=== PATIENT | male | born 1965 | race Caucasian/White ===

== ENCOUNTER 2020-05-27 13:09 | Emergency (ER) | payer OTHER ==
--- NOTE | 2020-05-27 13:52 | CR ---
Indication: Cough. Loss of taste and smell. Possible COVID. Technique: AP portable view of the chest. Comparison: None Findings: The heart is normal size. The lungs are clear. No infiltrate, pleural effusion, or pneumothorax is identified. Impression: No acute cardiopulmonary process Dictated by Ni Patterson MD @ May 27 2020 1:51PM Signed by Dr. Ni Patterson @ May 27 2020 1:52PM
--- NOTE | 2020-05-27 14:34 | EDM.PDOC ---
ED HPI GENERAL MEDICAL PROBLEM - General Chief Complaint: Respiratory Problem Stated Complaint: LOST OF TASTE WEAK FEVER Time Seen by Provider: 05/27/20 14:11 Source of Information: Reports: Patient History Limitations: Reports: No Limitations - History of Present Illness INITIAL COMMENTS - FREE TEXT/NARRATIVE: Presents reporting an exposure to Covid week. Now the last couple of days he has had a low-grade fever, chills, and his sense of taste is managed. He has had no shortness of breath diarrhea chest pain sore throat. He is otherwise healthy without chronic medical problems except hypothyroidism which is replaced. - Related Data Allergies Allergy/AdvReac Type Severity Reaction Status Date / Time No Known Allergies Allergy Verified 05/27/20 14:16 Home Meds: Home Meds Levothyroxine 150 mcg PO DAILY 05/27/20 [History] Past Medical History - Infectious Disease History Infectious Disease History: Reports: Chicken Pox Social & Family History - Family History Family Medical History: Noncontributory - Caffeine Use Caffeine Use: Reports: Tea - Recreational Drug Use Recreational Drug Use: No ED ROS GENERAL - Review of Systems Review Of Systems: Comprehensive ROS is negative, except as noted in HPI. ED EXAM, GENERAL - Physical Exam Exam: See Below Exam Limited By: No Limitations General Appearance: Alert, No Apparent Distress Ears: Normal External Exam, Normal TMs Nose: Normal Inspection Throat/Mouth: Normal Inspection Head: Atraumatic, Normocephalic Neck: Normal Inspection Respiratory/Chest: No Respiratory Distress, Lungs Clear, Normal Breath Sounds Cardiovascular: Normal Peripheral Pulses, Regular Rate, Rhythm, No Murmur Back Exam: Normal Inspection Extremities: Normal Inspection Neurological: Alert, Oriented Psychiatric: Normal Affect, Normal Mood Skin Exam: Warm, Dry, Intact, Normal Color, No Rash Lymphatic: No Adenopathy Course - Vital Signs Last Recorded V/S: Last Vital Signs Temp 36.6 C 05/27/20 14:17 Pulse 56 L 05/27/20 14:17 Resp 18 05/27/20 14:17 BP 164/74 H 05/27/20 14:17 Pulse Ox 96 05/27/20 14:17 - Orders/Labs/Meds Orders: Active Orders 24 hr Category Date Time Status CORONAVIRUS COVID-19 PCR [facility] Stat Lab 05/27/20 13:11 Ordered Departure - Departure Time of Disposition: 14:27 Disposition: Home, Self-Care 01 Condition: Good Clinical Impression: Viral illness - Discharge Information *PRESCRIPTION DRUG MONITORING PROGRAM REVIEWED*: Not Applicable *COPY OF PRESCRIPTION DRUG MONITORING REPORT IN PATIENT TREVER: Not Applicable Referrals: PCP,None [Primary Care Provider] - Additional Instructions: The following information is given to patients seen in the emergency department who are being discharged to home. This information is to outline your options for follow-up care. We provide all patients seen in our emergency department with a follow-up referral. The need for follow-up, as well as the timing and circumstances, are variable depending upon the specifics of your emergency department visit. If you don't have a primary care physician on staff, we will provide you with a referral. We always advise you to contact your personal physician following an emergency department visit to inform them of the circumstance of the visit and for follow-up with them and/or the need for any referrals to a consulting specialist. The emergency department will also refer you to a specialist when appropriate. This referral assures that you have the opportunity for follow-up care with a specialist. All of these measure are taken in an effort to provide you with optimal care, which includes your follow-up. Under all circumstances we always encourage you to contact your private physician who remains a resource for coordinating your care. When calling for follow-up care, please make the office aware that this follow-up is from your recent emergency room visit. If for any reason you are refused follow-up, please contact the [facility] Emergency Department at and asked to speak to the emergency department charge nurse Jose Miller [facility] [address] [place] [id number] [address] [id number] 1. You have a viral illness. Supportive care with Tylenol or ibuprofen as needed for body aches or fever 2. Drink Plenty of fluids and rest 3. Your COVID test was negative. Should you need Covid testing in the future, please follow-up at the respiratory clinic. Sepsis Event Note (ED) - Evaluation Sepsis Screening Result: No Definite Risk - Focused Exam Vital Signs: Vital Signs Temp Pulse Resp BP Pulse Ox 05/27/20 14:17 36.6 C 56 L 18 164/74 H 96
== END 2020-05-27 15:50 | disposition home or self-care (01) ==
LOC: MW.ED 13:09
DX: B34.9 Viral infection, unspecified (principal); Z20.828 Contact with and (suspected) exposure to other viral communicable diseases
CPT/HCPCS: 71045; 71045-26; 99282; 99283-25; U0002